=== PATIENT | female | born 1955 | race Caucasian/White ===

== ENCOUNTER 2017-11-28 10:55 | Outpatient (CLI) | payer OTHER ==
[~2017-11-28 10:55] MED LIST: CATAFLAM50 MG PO; ENALAPRIL MALE2.5 MG PO; LIPITOR20 MG; SYNTHROID75 MCG PO
== END 2017-11-28 11:20 | disposition home or self-care (01) ==
LOC: NUCLEAR 10:55
DX: M81.0 Age-related osteoporosis without current pathological fracture (principal)

== ENCOUNTER 2017-11-28 15:44 | Outpatient (CLI) | payer OTHER | END 2017-11-28 15:49 | disposition home or self-care (01) | LOC: MAMO-SONO 15:44 | DX: Z12.31 Encounter for screening mammogram for malignant neoplasm of breast (principal); C50.919 Malignant neoplasm of unspecified site of unspecified female breast; N64.89 Other specified disorders of breast; I11.9 Hypertensive heart disease without heart failure; R06.02 Shortness of breath ==

== ENCOUNTER 2018-04-05 09:22 | Outpatient (CLI) | payer OTHER | END 2018-04-05 09:24 | disposition home or self-care (01) | LOC: TOM 09:22 | DX: R10.2 Pelvic and perineal pain (principal) ==

== ENCOUNTER 2018-04-14 20:11 | Emergency (ER) | payer OTHER ==
[~2018-04-14] VITALS: Ht 162.6 cm; Wt 52.6 kg
== END 2018-04-15 07:40 | disposition designated cancer center or children's hospital (05) ==
LOC: ER 20:11
DX: S52.122A Displaced fracture of head of left radius, initial encounter for closed fracture (principal); S00.83XA Contusion of other part of head, initial encounter; S40.011A Contusion of right shoulder, initial encounter; S19.89XA Other specified injuries of other specified part of neck, initial encounter; W18.09XA Striking against other object with subsequent fall, initial encounter; Y93.K1 Activity, walking an animal; Y92.018 Other place in single-family (private) house as the place of occurrence of the external cause; Y99.8 Other external cause status

== ENCOUNTER 2018-04-18 11:29 | Outpatient (CLI) | payer OTHER ==
[2018-04-19] MEDS ORDERED: SYNTHROID75 MCG (12:14)
== END 2018-04-18 11:38 | disposition home or self-care (01) ==
LOC: RAD 501 11:29
DX: M25.522 Pain in left elbow (principal)

== ENCOUNTER → 2018-04-23 | Day surgery (SDC) | payer OTHER ==
[~2018-04-23] MED LIST changes: +SYNTHROID75 MCG
== END | disposition home or self-care (01) ==
LOC: ADM 04-19 09:00 → CIR.AMB 07:52
DX: S52.122A Displaced fracture of head of left radius, initial encounter for closed fracture (principal); S62.131A Displaced fracture of capitate [os magnum] bone, right wrist, initial encounter for closed fracture

== ENCOUNTER 2018-06-06 10:40 | Outpatient (CLI) | payer OTHER | END 2018-06-06 10:45 | disposition home or self-care (01) | LOC: RAD 501 10:40 | DX: S52.122D Displaced fracture of head of left radius, subsequent encounter for closed fracture with routine healing (principal) ==

== ENCOUNTER → 2018-06-20 | Outpatient (CLI) | payer OTHER | END | disposition home or self-care (01) | LOC: SONOGRAMA 09:45 | DX: M25.512 Pain in left shoulder (principal); M25.522 Pain in left elbow ==

== ENCOUNTER 2018-07-19 09:30 | Outpatient (CLI) | payer OTHER | END 2018-07-19 09:35 | disposition home or self-care (01) | LOC: RAD 501 09:30 | DX: M25.522 Pain in left elbow (principal) ==

== ENCOUNTER 2018-07-23 07:42 | Outpatient (CLI) | payer OTHER | END 2018-07-23 08:55 | disposition home or self-care (01) | LOC: LAB 07:42 | DX: D64.89 Other specified anemias (principal); E88.89 Other specified metabolic disorders; D68.8 Other specified coagulation defects; N39.0 Urinary tract infection, site not specified; Z22.322 Carrier or suspected carrier of Methicillin resistant Staphylococcus aureus; I49.8 Other specified cardiac arrhythmias; Z76.89 Persons encountering health services in other specified circumstances ==

== ENCOUNTER 2018-08-03 06:00 | Day surgery (SDC) | payer OTHER | END 2018-08-03 11:25 | disposition home or self-care (01) | LOC: CIR.AMB 06:00 | DX: M24.532 Contracture, left wrist (principal); M65.842 Other synovitis and tenosynovitis, left hand ==

== ENCOUNTER 2018-08-06 14:18 | Outpatient (CLI) | payer OTHER | END 2018-08-06 14:25 | disposition home or self-care (01) | LOC: RAD 501 14:18 | DX: M25.522 Pain in left elbow (principal) ==

== ENCOUNTER 2018-08-15 08:10 | Outpatient (CLI) | payer OTHER | END 2018-08-15 08:16 | disposition home or self-care (01) | LOC: MRI 08:10 | DX: M25.512 Pain in left shoulder (principal) | CPT/HCPCS: 73219 ==

== ENCOUNTER 2020-09-23 14:08 | Outpatient (CLI) | payer OTHER | END 2020-09-23 14:11 | disposition home or self-care (01) | LOC: MAMO-SONO 14:08 | PROVIDERS: ATTEND Specialist | DX: N64.59 Other signs and symptoms in breast (principal); Z12.31 Encounter for screening mammogram for malignant neoplasm of breast; Z87.898 Personal history of other specified conditions ==

== ENCOUNTER 2021-05-24 13:26 | Outpatient (CLI) | payer OTHER | END 2021-05-24 13:29 | disposition home or self-care (01) | LOC: RAD 13:26 | PROVIDERS: ATTEND Internal Medicine Geriatric Medicine | DX: M47.27 Other spondylosis with radiculopathy, lumbosacral region (principal); M54.50 Low back pain, unspecified ==

== ENCOUNTER 2021-05-24 13:49 | Outpatient (CLI) | payer OTHER | END 2021-05-24 13:52 | disposition home or self-care (01) | LOC: NUCLEAR 13:49 | PROVIDERS: ATTEND Internal Medicine Geriatric Medicine | DX: M15.0 Primary generalized (osteo)arthritis (principal); M81.0 Age-related osteoporosis without current pathological fracture ==

== ENCOUNTER 2021-10-20 10:43 | Outpatient (CLI) | payer OTHER | END 2021-10-20 10:48 | disposition home or self-care (01) | LOC: LAB 10:43 | PROVIDERS: ATTEND Radiology Diagnostic Radiology | DX: R10.9 Unspecified abdominal pain (principal) ==

== ENCOUNTER 2021-10-27 09:06 | Outpatient (CLI) | payer OTHER | END 2021-10-27 09:11 | disposition home or self-care (01) | LOC: RAD 09:06 | PROVIDERS: ATTEND Internal Medicine Geriatric Medicine | DX: Z12.31 Encounter for screening mammogram for malignant neoplasm of breast (principal); C50.919 Malignant neoplasm of unspecified site of unspecified female breast; N63.0 Unspecified lump in unspecified breast; N64.4 Mastodynia; N60.12 Diffuse cystic mastopathy of left breast; N60.11 Diffuse cystic mastopathy of right breast; R10.9 Unspecified abdominal pain; I71.4 Abdominal aortic aneurysm, without rupture; R19.09 Other intra-abdominal and pelvic swelling, mass and lump ==

== ENCOUNTER 2022-01-05 10:29 | Outpatient (CLI) | payer OTHER | END 2022-01-05 12:42 | disposition home or self-care (01) | LOC: SONOGRAMA 10:29 | PROVIDERS: ATTEND Specialist | DX: R10.2 Pelvic and perineal pain (principal) ==

== ENCOUNTER 2023-02-21 09:03 | Outpatient (CLI) | payer OTHER ==
[~2023-02-21 09:03] MED LIST changes: +CYCLOBENZAPRINE10 MG PO; +DICLOFENAC POTA50 MG PO; +KETO10TA2 PO; +METAXALONE800 MG PO; +TORADOL60 MG IM
== END 2023-02-21 09:05 | disposition home or self-care (01) ==
LOC: MAMO-SONO 09:03
PROVIDERS: ATTEND Internal Medicine Geriatric Medicine
DX: E04.1 Nontoxic single thyroid nodule (principal); M54.2 Cervicalgia; Z12.31 Encounter for screening mammogram for malignant neoplasm of breast; C50.919 Malignant neoplasm of unspecified site of unspecified female breast; N63.0 Unspecified lump in unspecified breast; N64.4 Mastodynia; N60.12 Diffuse cystic mastopathy of left breast; N60.11 Diffuse cystic mastopathy of right breast
CPT/HCPCS: 72141

== ENCOUNTER 2023-06-01 11:32 | Outpatient (CLI) | payer OTHER ==
[~2023-06-01 11:32] MED LIST changes: +GABAPENTIN300 M2 PO
== END 2023-06-01 11:35 | disposition home or self-care (01) ==
LOC: NUCLEAR 11:32
PROVIDERS: ATTEND Internal Medicine Rheumatology
DX: M81.0 Age-related osteoporosis without current pathological fracture (principal)

== ENCOUNTER 2024-09-03 08:40 | Outpatient (CLI) | payer OTHER ==
[~2024-09-03 08:40] MED LIST changes: +MEDROLPACK PO
== END 2024-09-03 08:44 | disposition home or self-care (01) ==
LOC: MAMO-SONO 08:40
PROVIDERS: ATTEND Internal Medicine Geriatric Medicine
DX: D25.9 Leiomyoma of uterus, unspecified (principal); E04.1 Nontoxic single thyroid nodule; L04.0 Acute lymphadenitis of face, head and neck; Z12.31 Encounter for screening mammogram for malignant neoplasm of breast; C50.919 Malignant neoplasm of unspecified site of unspecified female breast; N63 Unspecified lump in breast; N64.4 Mastodynia; N60.12 Diffuse cystic mastopathy of left breast; N60.11 Diffuse cystic mastopathy of right breast

== ENCOUNTER 2024-10-10 07:32 | Outpatient (CLI) | payer OTHER | END 2024-10-10 07:35 | disposition home or self-care (01) | LOC: SONOGRAMA 07:32 | PROVIDERS: ATTEND Pathology Anatomic Pathology | DX: D34 Benign neoplasm of thyroid gland (principal); E06.3 Autoimmune thyroiditis; R59.0 Localized enlarged lymph nodes; D11.0 Benign neoplasm of parotid gland ==